=== PATIENT | male | born 1940 | race Caucasian/White ===

== ENCOUNTER → 2018-08-30 | Outpatient (CLI) | payer MEDICARE, OTHER | END | disposition home or self-care (01) | LOC: RAD 09:26 | DX: R05 Cough (principal) | CPT/HCPCS: 71046 ==

== ENCOUNTER → 2019-01-23 | Outpatient (CLI) | payer MEDICARE, OTHER ==
[2019-01-23] MEDS: IODIXANOL LOCM 100 ML BTL (10:25)
[2019-01-23] MEDS: SOD CHLORIDE 0.9% 100 ML (10:25)
== END | disposition home or self-care (01) ==
LOC: C/S 08:41
DX: R94.39 Abnormal result of other cardiovascular function study (principal)
CPT/HCPCS: 75571; 75574

== ENCOUNTER → 2019-01-25 | Outpatient (CLI) | payer MEDICARE, OTHER ==
[2019-01-25] MEDS: IOHEXOL 350MG/ML 50 ML BTL (12:14)
[2019-01-25] MEDS: IOHEXOL 100 ML (12:14)
[2019-01-25] MEDS: SOD CHLORIDE 0.9% 100 ML (12:14)
== END | disposition home or self-care (01) ==
LOC: C/S 10:58
DX: I73.9 Peripheral vascular disease, unspecified (principal)
CPT/HCPCS: 75635

== ENCOUNTER 2019-02-03 07:08 | Inpatient (IN) | payer MEDICARE, OTHER ==
[2019-02-03 07:48] LABS: ADD MAN DIFF? NO
[2019-02-03 07:56] LABS: WHITE BLOOD COUNT 7.6 10^3/ul (4.8-10.8)
[2019-02-03 07:56] LABS: BASOPHIL # 0.1 10^3/ul (0.0-0.1); BASOPHILS % 1.3 % (0.0-2.0); EOSINOPHILS # 0.6 10^3/ul (0.0-0.5); EOSINOPHILS % 7.5 % (0.0-7.0); HEMATOCRIT 44.3 % (42.0-52.0); HEMOGLOBIN 14.7 g/dl (14.0-18.0); LYMPHOCYTES # 2.1 10^3/ul (0.8-2.9); LYMPHOCYTES % 27.7 % (15.0-51.0); MEAN CORPUSCULAR HEMOGLOBIN 31.5 pg (29.0-33.0); MEAN CORPUSCULAR HGB CONC 33.2 g/dl (32.0-37.0); MEAN CORPUSCULAR VOLUME 95.1 fl (82.0-101.0); MEAN PLATELET VOLUME 9.6 fl (7.4-10.4); MONOCYTE # 0.7 10^3/ul (0.3-0.9); MONOCYTES % 9.2 % (0.0-11.0); NEUTROPHIL # 4.1 10^3/ul (1.6-7.5); NEUTROPHILS % 53.6 % (39.0-77.0); PLATELET COUNT 216 10^3/UL (140-415); RED BLOOD COUNT 4.66 10^6/ul (4.70-6.10); RED CELL DISTRIBUTION WIDTH 11.7 % (11.5-14.5)
[2019-02-03] MEDS: DIAZEPAM 5 MG TAB PO (08:08)
[2019-02-03] MEDS: DIPHENHYDRAMINE 50 MG CAP PO (08:08)
[2019-02-03] MEDS: FAMOTIDINE 20 MG TAB PO (08:09)
[2019-02-03 08:16] LABS: INR 1.34; PROTIME 16.7 Sec (11.9-14.9); PT RATIO 1.3
[2019-02-03 08:27] LABS: CHOLESTEROL 153 mg/dl (100-200)
[2019-02-03 08:27] LABS: CHOL/HDL RATIO 3.6 RATIO; HDL CHOLESTEROL 42 mg/dl (31-75); LDL CHOLESTEROL,CALCULATED 87 mg/dl; TRIGLYCERIDES 119 mg/dl (0-149)
[2019-02-03 08:46] LABS: PARTIAL THROMBOPLASTIN TIME 39.1 Sec (23.0-35.0)
[2019-02-03] MEDS ORDERED: SOD CHLORIDE 0.45% 1,000 ML IV (09:00)
[2019-02-03] MEDS ORDERED: MIDAZOLAM 1 MG/ML 2 ML INJ (09:19)
[2019-02-03] MEDS ORDERED: IODIXANOL LOCM 100 ML BTL (09:19)
[2019-02-03] MEDS ORDERED: NITROGLYCERIN (IC) 100 MCG/ML INJ (09:19)
[2019-02-03] MEDS ORDERED: HEPARIN 1000 UNITS/ML 10 ML INJ (09:19)
[2019-02-03] MEDS ORDERED: VERAPAMIL 5 MG INJ (09:19)
[2019-02-03] MEDS ORDERED: LIDOCAINE 1% (MDV) 20 ML INJ (09:19)
[2019-02-03] MEDS ORDERED: FENTAnyl 50 MCG/ML VIAL (09:19)
[2019-02-03 10:02] LABS: ANION GAP 9 (5-13); CALCIUM 9.4 mg/dl (8.4-10.2); CARBON DIOXIDE 29 mmol/L (21-31); CHLORIDE 101 mmol/L (97-110); GLUCOSE 111 mg/dl (70-220); POTASSIUM 3.8 mmol/L (3.5-5.1); SODIUM 139 mmol/L (135-144)
[2019-02-03 10:18] LABS: BLOOD UREA NITROGEN 24 mg/dl (7-20)
[2019-02-03 10:19] LABS: CREATININE 1.35 mg/dl (0.61-1.24)
[2019-02-03] MEDS ORDERED: SOD CHLORIDE 0.9% 500 ML (10:35)
[2019-02-03] MEDS ORDERED: AL HYDROX/MG HYDROX/SIMETH 30 ML CUP PO (11:00)
[2019-02-03] MEDS ORDERED: ONDANSETRON 4 MG INJ IV (11:00)
[2019-02-03] MEDS: SOD CHLORIDE 0.9% 1,000 ML IV (12:08)
[2019-02-03] MEDS: DONEPEZIL 5 MG TAB PO (20:14)
[2019-02-03] MEDS: traZODone 50 MG TAB PO (20:14)
[2019-02-03] MEDS: ATORVASTATIN 40 MG TAB PO (20:14)
[2019-02-03] MEDS: TAMSULOSIN (SR) 0.4 MG CAP PO (20:14)
[2019-02-04] MEDS: PANTOPRAZOLE (EC) 40 MG TAB PO (05:05)
[2019-02-04 05:55] LABS: ADD MAN DIFF? NO
[2019-02-04 06:03] LABS: WHITE BLOOD COUNT 9.1 10^3/ul (4.8-10.8)
[2019-02-04 06:03] LABS: BASOPHIL # 0.1 10^3/ul (0.0-0.1); BASOPHILS % 0.7 % (0.0-2.0); EOSINOPHILS # 0.5 10^3/ul (0.0-0.5); EOSINOPHILS % 5.2 % (0.0-7.0); HEMATOCRIT 41.3 % (42.0-52.0); HEMOGLOBIN 14.2 g/dl (14.0-18.0); LYMPHOCYTES # 1.8 10^3/ul (0.8-2.9); MEAN CORPUSCULAR HEMOGLOBIN 31.9 pg (29.0-33.0); MEAN CORPUSCULAR HGB CONC 34.4 g/dl (32.0-37.0); MEAN CORPUSCULAR VOLUME 92.8 fl (82.0-101.0); MEAN PLATELET VOLUME 10.2 fl (7.4-10.4); MONOCYTE # 0.9 10^3/ul (0.3-0.9); MONOCYTES % 9.7 % (0.0-11.0); NEUTROPHIL # 5.8 10^3/ul (1.6-7.5); NEUTROPHILS % 63.9 % (39.0-77.0); PLATELET COUNT 190 10^3/UL (140-415); RED BLOOD COUNT 4.45 10^6/ul (4.70-6.10); RED CELL DISTRIBUTION WIDTH 11.7 % (11.5-14.5)
[2019-02-04 06:45] LABS: ANION GAP 8 (5-13); BLOOD UREA NITROGEN 30 mg/dl (7-20); CALCIUM 9.2 mg/dl (8.4-10.2); CARBON DIOXIDE 30 mmol/L (21-31); CHLORIDE 103 mmol/L (97-110); CREATININE 1.53 mg/dl (0.61-1.24); GLUCOSE 101 mg/dl (70-220); POTASSIUM 3.7 mmol/L (3.5-5.1); SODIUM 141 mmol/L (135-144)
[2019-02-04] MEDS: DIAZEPAM 5 MG TAB PO (08:52)
[2019-02-04] MEDS: AMLODIPINE 5 MG TAB PO (08:53)
[2019-02-04] MEDS: DIPHENHYDRAMINE 50 MG CAP PO (08:53)
[2019-02-04] MEDS: BENAZEPRIL 10 MG TAB PO (08:54)
[2019-02-04] MEDS: ATORVASTATIN 40 MG TAB PO (20:22)
[2019-02-04] MEDS: DONEPEZIL 5 MG TAB PO (20:22)
[2019-02-04] MEDS: TAMSULOSIN (SR) 0.4 MG CAP PO (20:22)
[2019-02-04] MEDS: traZODone 50 MG TAB PO (20:22)
[2019-02-05] MEDS: PANTOPRAZOLE (EC) 40 MG TAB PO (06:19)
[2019-02-05 06:35] LABS: ADD MAN DIFF? NO
[2019-02-05 06:47] LABS: WHITE BLOOD COUNT 8.8 10^3/ul (4.8-10.8)
[2019-02-05 06:47] LABS: BASOPHIL # 0.1 10^3/ul (0.0-0.1); BASOPHILS % 0.9 % (0.0-2.0); EOSINOPHILS # 0.5 10^3/ul (0.0-0.5); EOSINOPHILS % 5.6 % (0.0-7.0); HEMATOCRIT 42.1 % (42.0-52.0); HEMOGLOBIN 14.5 g/dl (14.0-18.0); LYMPHOCYTES % 22.3 % (15.0-51.0); MEAN CORPUSCULAR HGB CONC 34.4 g/dl (32.0-37.0); MEAN CORPUSCULAR VOLUME 92.9 fl (82.0-101.0); MEAN PLATELET VOLUME 10.6 fl (7.4-10.4); MONOCYTE # 0.8 10^3/ul (0.3-0.9); MONOCYTES % 9.1 % (0.0-11.0); NEUTROPHIL # 5.4 10^3/ul (1.6-7.5); NEUTROPHILS % 61.4 % (39.0-77.0); PLATELET COUNT 182 10^3/UL (140-415); RED BLOOD COUNT 4.53 10^6/ul (4.70-6.10); RED CELL DISTRIBUTION WIDTH 11.9 % (11.5-14.5)
[2019-02-05 07:05] LABS: ANION GAP 12 (5-13); BLOOD UREA NITROGEN 33 mg/dl (7-20); CARBON DIOXIDE 25 mmol/L (21-31); CHLORIDE 104 mmol/L (97-110); CREATININE 1.52 mg/dl (0.61-1.24); GLUCOSE 102 mg/dl (70-220); POTASSIUM 3.6 mmol/L (3.5-5.1); SODIUM 141 mmol/L (135-144)
[2019-02-05] MEDS: DIPHENHYDRAMINE 50 MG CAP PO (09:08)
[2019-02-05] MEDS: DIAZEPAM 5 MG TAB PO (09:09)
[2019-02-05] MEDS: AMLODIPINE 5 MG TAB PO (09:09)
[2019-02-05] MEDS: BENAZEPRIL 10 MG TAB PO (09:09)
[2019-02-05] MEDS: DONEPEZIL 5 MG TAB PO (21:21)
[2019-02-05] MEDS: ATORVASTATIN 40 MG TAB PO (21:21)
[2019-02-05] MEDS: TAMSULOSIN (SR) 0.4 MG CAP PO (21:21)
[2019-02-05] MEDS: traZODone 50 MG TAB PO (21:21)
[2019-02-06 05:18] LABS: ADD MAN DIFF? NO
[2019-02-06 05:26] LABS: BASOPHIL # 0.1 10^3/ul (0.0-0.1); BASOPHILS % 0.9 % (0.0-2.0); EOSINOPHILS # 0.5 10^3/ul (0.0-0.5); HEMATOCRIT 42.7 % (42.0-52.0); HEMOGLOBIN 14.5 g/dl (14.0-18.0); MEAN CORPUSCULAR HEMOGLOBIN 32.2 pg (29.0-33.0); MEAN CORPUSCULAR VOLUME 94.7 fl (82.0-101.0); MONOCYTE # 0.9 10^3/ul (0.3-0.9); MONOCYTES % 9.8 % (0.0-11.0); NEUTROPHIL # 5.5 10^3/ul (1.6-7.5); NEUTROPHILS % 60.5 % (39.0-77.0); PLATELET COUNT 182 10^3/UL (140-415); RED BLOOD COUNT 4.51 10^6/ul (4.70-6.10); RED CELL DISTRIBUTION WIDTH 11.7 % (11.5-14.5)
[2019-02-06 05:26] LABS: WHITE BLOOD COUNT 9.1 10^3/ul (4.8-10.8)
[2019-02-06 06:02] LABS: ANION GAP 14 (5-13); BLOOD UREA NITROGEN 35 mg/dl (7-20); CALCIUM 8.8 mg/dl (8.4-10.2); CARBON DIOXIDE 28 mmol/L (21-31); CHLORIDE 101 mmol/L (97-110); CREATININE 1.55 mg/dl (0.61-1.24); GLUCOSE 107 mg/dl (70-220); POTASSIUM 3.7 mmol/L (3.5-5.1); SODIUM 143 mmol/L (135-144)
[2019-02-06] MEDS: PANTOPRAZOLE (EC) 40 MG TAB PO (06:36)
[2019-02-06] MEDS: DIPHENHYDRAMINE 50 MG CAP PO (09:51)
[2019-02-06] MEDS: DIAZEPAM 5 MG TAB PO (09:52)
[2019-02-06] MEDS: BENAZEPRIL 10 MG TAB PO (09:52)
[2019-02-06] MEDS: AMLODIPINE 5 MG TAB PO (09:52)
[2019-02-06] MEDS: traZODone 50 MG TAB PO (20:22)
[2019-02-06] MEDS: ATORVASTATIN 40 MG TAB PO (20:22)
[2019-02-06] MEDS: TAMSULOSIN (SR) 0.4 MG CAP PO (20:22)
[2019-02-06] MEDS: DONEPEZIL 5 MG TAB PO (20:23)
[2019-02-07] MEDS: PANTOPRAZOLE (EC) 40 MG TAB PO (05:34)
[2019-02-07 05:45] LABS: ADD MAN DIFF? NO
[2019-02-07 05:49] LABS: BASOPHIL # 0.1 10^3/ul (0.0-0.1); BASOPHILS % 0.7 % (0.0-2.0); EOSINOPHILS # 0.5 10^3/ul (0.0-0.5); EOSINOPHILS % 6.5 % (0.0-7.0); HEMATOCRIT 38.9 % (42.0-52.0); HEMOGLOBIN 13.3 g/dl (14.0-18.0); LYMPHOCYTES # 1.8 10^3/ul (0.8-2.9); LYMPHOCYTES % 21.9 % (15.0-51.0); MEAN CORPUSCULAR HGB CONC 34.2 g/dl (32.0-37.0); MEAN CORPUSCULAR VOLUME 93.5 fl (82.0-101.0); MEAN PLATELET VOLUME 10.1 fl (7.4-10.4); MONOCYTE # 0.9 10^3/ul (0.3-0.9); MONOCYTES % 10.9 % (0.0-11.0); NEUTROPHIL # 4.8 10^3/ul (1.6-7.5); NEUTROPHILS % 59.5 % (39.0-77.0); PLATELET COUNT 171 10^3/UL (140-415); RED BLOOD COUNT 4.16 10^6/ul (4.70-6.10); RED CELL DISTRIBUTION WIDTH 11.7 % (11.5-14.5)
[2019-02-07 05:49] LABS: WHITE BLOOD COUNT 8.1 10^3/ul (4.8-10.8)
[2019-02-07 06:07] LABS: ANION GAP 8 (5-13); BLOOD UREA NITROGEN 33 mg/dl (7-20); CARBON DIOXIDE 26 mmol/L (21-31); CHLORIDE 105 mmol/L (97-110); CREATININE 1.37 mg/dl (0.61-1.24); GLUCOSE 99 mg/dl (70-220); INR 0.97; POTASSIUM 3.7 mmol/L (3.5-5.1); SODIUM 139 mmol/L (135-144)
[2019-02-07] MEDS ORDERED: EPINEPHrine 4 MG in DEXTROSE 5% 246 ML IV ×2 (07:00→14:30)
[2019-02-07] MEDS ORDERED: ISOFLURANE 15 MIN (07:00)
[2019-02-07] MEDS ORDERED: DOPamine-D5W 1.6 MG/ML 250 ML (07:00)
[2019-02-07] MEDS ORDERED: MILRINONE LACTATE 20 MG/D5W 100 ML BAG (07:00)
[2019-02-07] MEDS ORDERED: INSULIN HUMAN REGULAR 100 UNIT in SOD CHLORIDE 0.9% 99 ML IV (07:00)
[2019-02-07] MEDS ORDERED: NITROGLYCERIN 50 MG/D5W 250 ML BTL (07:00)
[2019-02-07] MEDS ORDERED: PHENYLephrine 20MG IN 250 ML 250 ML IV (07:00)
[2019-02-07] MEDS ORDERED: MIDAZOLAM 5 ML ×2 (07:39→10:01)
[2019-02-07] MEDS ORDERED: PHENYLephrine (100 MCG/ML) 5ML SYG ×4 (07:42→12:22)
[2019-02-07] MEDS ORDERED: POTASSIUM CHLORIDE 40 MEQ INJ (07:45)
[2019-02-07] MEDS ORDERED: HEPARIN 1000 UNITS/ML 10 ML INJ ×3 (07:45→09:53)
[2019-02-07] MEDS ORDERED: ALBUMIN HUMAN 25% 100 ML (07:46)
[2019-02-07] MEDS ORDERED: MAGNESIUM SULFATE (MG) 50% 10 ML INJ (07:46)
[2019-02-07] MEDS ORDERED: LIDOCAINE 100 MG SYRINGE (07:46)
[2019-02-07] MEDS ORDERED: PHENYLephrine 10 MG INJ (07:46)
[2019-02-07] MEDS ORDERED: CA CHLORIDE 10% 10 ML SYRINGE (07:46)
[2019-02-07] MEDS ORDERED: NA BICARBONATE 8.4% 50 ML SYG (07:46)
[2019-02-07] MEDS ORDERED: MANNITOL 20% 500 ML (07:47)
[2019-02-07] MEDS ORDERED: AMINOCAPROIC ACID 5 GM INJ (07:47)
[2019-02-07] MEDS ORDERED: CEFAZOLIN 1 GM INJ ×2 (08:34→11:59)
[2019-02-07] MEDS ORDERED: ADENOSINE 2 ML (08:34)
[2019-02-07] MEDS: DIAZEPAM 5 MG TAB PO (09:00)
[2019-02-07] MEDS: BENAZEPRIL 10 MG TAB PO (09:00)
[2019-02-07] MEDS: DIPHENHYDRAMINE 50 MG CAP PO (09:00)
[2019-02-07] MEDS: AMLODIPINE 5 MG TAB PO (09:00)
[2019-02-07] MEDS: HEPARIN 1000 UNITS/ML 10 ML INJ (09:05)
[2019-02-07] MEDS: PAPAVERINE 60 MG INJ (09:05)
[2019-02-07] MEDS: VANCOMYCIN 1 GM INJ (09:06)
[2019-02-07] MEDS ORDERED: FUROSEMIDE 20 MG INJ (10:16)
[2019-02-07] MEDS ORDERED: ETOMIDATE 20 MG INJ (11:59)
[2019-02-07] MEDS ORDERED: LIDOCAINE 2% (SDV) 5 ML INJ (11:59)
[2019-02-07] MEDS ORDERED: ROCURONIUM 50 MG INJ (11:59)
[2019-02-07] MEDS ORDERED: PROTAMINE 250 MG INJ (12:00)
[2019-02-07 12:11] LABS: IMMEDIATE SPIN CROSSMATCH 1 7
[2019-02-07 12:30] LABS: IMMEDIATE SPIN CROSSMATCH 1; TYPE AND SCREEN 1
[2019-02-07] MEDS ORDERED: GELATIN SIZE 100 SPONGE (12:36)
[2019-02-07] MEDS ORDERED: THROMBIN 5000 UNIT VIAL (12:36)
[2019-02-07] MEDS ORDERED: DIPHENHYDRAMINE 50 MG INJ (12:46)
[2019-02-07] MEDS: PHENYLephrine 20MG IN 250 ML 250 ML IV ×2 (14:00→16:24)
[2019-02-07] MEDS: NITROGLYCERIN 50 MG/D5W (PMX) 250 ML IV (14:00)
[2019-02-07] MEDS: MILRINONE LACTATE 100 ML IV (14:00)
[2019-02-07] MEDS: DOPamine-D5W 1.6 MG/ML 250 ML IV (14:00)
[2019-02-07] MEDS ORDERED: ALBUMIN HUMAN 5% 250 ML (14:21)
[2019-02-07] MEDS ORDERED: ALBUMIN HUMAN 5% 500 ML (14:22)
[2019-02-07] MEDS ORDERED: ALBUMIN HUMAN 5% 250 ML IV (14:30)
[2019-02-07] MEDS ORDERED: DIPHENHYDRAMINE 50 MG INJ IV (14:30)
[2019-02-07] MEDS ORDERED: ATROPINE 1 MG/10 ML SYRINGE IV (14:30)
[2019-02-07] MEDS ORDERED: morphine (1 MG/ML) 10ML SYRINGE IV ×2 (14:30)
[2019-02-07] MEDS ORDERED: ONDANSETRON 4 MG INJ IV (14:30)
[2019-02-07] MEDS ORDERED: EPHEDrine SULFATE 50 MG/5 ML SYG IV (14:30)
[2019-02-07] MEDS ORDERED: VASOPRESSIN 100 UNIT in SOD CHLORIDE 0.9% 95 ML IV (14:30)
[2019-02-07] MEDS ORDERED: LORAZEPAM 2 MG INJ IV (14:30)
[2019-02-07] MEDS: LACTATED RINGER'S 1,000 ML IV (14:34)
[2019-02-07] MEDS: ALBUMIN HUMAN 5% 500 ML IV (14:35)
[2019-02-07 14:46] LABS: AADO2 Arterial 338.9 mmHg (7.0-24.0); Arterial Base Excess -2.8 mmol/L (-3.0-3); Arterial Blood Gas Oxygen Sat 96.2 mmHG (95.0-100.0); Arterial COHb 0.3 % (0.0-3.0); Arterial Fraction of Oxyhgb 95.3 % (93.0-99.0); Arterial HCO3 24.5 mmol/L (22.0-26.0); Arterial MetHb 0.6 % (0.0-1.5); MODE VENT - AC; Site A-Line
[2019-02-07 14:50] LABS: MODE VENT - AC; MetHgb Mixed Venous 0.8 %; Mixed Venous COHb 0.3 %; Mixed Venous Fraction OxyHgb 85.7 %; Mixed Venous Oxygen Sat 86.7 mmHG (65.0-75.0); Mixed Venous Total Hemglobin 11.1 g/dl; Sample Type BLMV; Site OTHER
[2019-02-07] MEDS ORDERED: HYDROmorphONE 0.5 MG/0.5 ML SYG IV (15:00)
[2019-02-07] MEDS ORDERED: ACETAMINOPHEN 650 MG SUPP PR (15:00)
[2019-02-07 15:14] LABS: ADD MAN DIFF? NO
[2019-02-07 15:16] LABS: WHITE BLOOD COUNT 7.5 10^3/ul (4.8-10.8)
[2019-02-07 15:17] LABS: BASOPHILS % 0.1 % (0.0-2.0); EOSINOPHILS % 0.3 % (0.0-7.0); HEMATOCRIT 31.3 % (42.0-52.0); HEMOGLOBIN 10.6 g/dl (14.0-18.0); LYMPHOCYTES # 1.1 10^3/ul (0.8-2.9); MEAN CORPUSCULAR HEMOGLOBIN 32.1 pg (29.0-33.0); MEAN CORPUSCULAR HGB CONC 33.9 g/dl (32.0-37.0); MEAN CORPUSCULAR VOLUME 94.8 fl (82.0-101.0); MEAN PLATELET VOLUME 9.2 fl (7.4-10.4); MONOCYTE # 0.4 10^3/ul (0.3-0.9); MONOCYTES % 4.7 % (0.0-11.0); NEUTROPHILS % 80.1 % (39.0-77.0); PLATELET COUNT 138 10^3/UL (140-415); RED CELL DISTRIBUTION WIDTH 12.1 % (11.5-14.5)
[2019-02-07 15:35] LABS: ANION GAP 10 (5-13); BLOOD UREA NITROGEN 27 mg/dl (7-20); CALCIUM 8.6 mg/dl (8.4-10.2); CARBON DIOXIDE 24 mmol/L (21-31); CHLORIDE 106 mmol/L (97-110); CREATININE 1.31 mg/dl (0.61-1.24); GLUCOSE 122 mg/dl (70-220); MAGNESIUM 2.3 mg/dl (1.7-2.5); POTASSIUM 3.9 mmol/L (3.5-5.1); SODIUM 140 mmol/L (135-144)
[2019-02-07 15:37] LABS: INR 1.39; PROTIME 17.2 Sec (11.9-14.9); PT RATIO 1.3
[2019-02-07 15:38] LABS: PARTIAL THROMBOPLASTIN TIME 31.5 Sec (23.0-35.0)
[2019-02-07] MEDS: CEFAZOLIN 1 GM/50 ML (PMX) 50 ML IVPB ×2 (16:17→23:00)
[2019-02-07] MEDS: POTASSIUM CHLORIDE 40 MEQ, CALCIUM CHLORIDE 10% 1 GM in DEXTROSE 5%-0.225% NACL 1,000 ML IV (16:17)
[2019-02-07] MEDS: HYDROmorphONE 0.5 MG/0.5 ML SYG IV ×3 (16:33→17:58)
[2019-02-07] MEDS: POTASSIUM CHLORIDE 50 ML IVPB ×4 (17:18→21:50)
[2019-02-07] MEDS: MAGNESIUM SULFATE 2 GM/50 ML 50 ML IVPB (17:58)
[2019-02-07 18:39] LABS: INR 1.21; PROTIME 15.4 Sec (11.9-14.9); PT RATIO 1.2
[2019-02-07 18:40] LABS: PARTIAL THROMBOPLASTIN TIME 35.8 Sec (23.0-35.0)
[2019-02-07 18:42] LABS: ANION GAP 10 (5-13); BLOOD UREA NITROGEN 27 mg/dl (7-20); CALCIUM 8.9 mg/dl (8.4-10.2); CARBON DIOXIDE 23 mmol/L (21-31); CHLORIDE 107 mmol/L (97-110); CREATININE 1.44 mg/dl (0.61-1.24); GLUCOSE 160 mg/dl (70-220); MAGNESIUM 2.1 mg/dl (1.7-2.5); POTASSIUM 3.5 mmol/L (3.5-5.1); SODIUM 140 mmol/L (135-144)
[2019-02-07] MEDS: FAMOTIDINE 20 MG INJ IV (20:36)
[2019-02-07 20:59] LABS: ABNORMAL IP MESSAGE 1; ADD MAN DIFF? NO; BASOPHILS % 0.3 % (0.0-2.0); EOSINOPHILS # 0.1 10^3/ul (0.0-0.5); EOSINOPHILS % 0.6 % (0.0-7.0); HEMATOCRIT 31.9 % (42.0-52.0); HEMOGLOBIN 10.9 g/dl (14.0-18.0); LYMPHOCYTES # 0.4 10^3/ul (0.8-2.9); LYMPHOCYTES % 3.1 % (15.0-51.0); MEAN CORPUSCULAR HEMOGLOBIN 31.6 pg (29.0-33.0); MEAN CORPUSCULAR HGB CONC 34.2 g/dl (32.0-37.0); MEAN CORPUSCULAR VOLUME 92.5 fl (82.0-101.0); MEAN PLATELET VOLUME 9.3 fl (7.4-10.4); MONOCYTE # 0.8 10^3/ul (0.3-0.9); MONOCYTES % 6.4 % (0.0-11.0); NEUTROPHIL # 11.6 10^3/ul (1.6-7.5); NEUTROPHILS % 88.8 % (39.0-77.0); PLATELET COUNT 148 10^3/UL (140-415); POSITIVE DIFF @See below; RED BLOOD COUNT 3.45 10^6/ul (4.70-6.10); RED CELL DISTRIBUTION WIDTH 12.3 % (11.5-14.5)
[2019-02-07] MEDS: DONEPEZIL 5 MG TAB PO (21:00)
[2019-02-07] MEDS: ATORVASTATIN 40 MG TAB PO (21:00)
[2019-02-07] MEDS: traZODone 50 MG TAB PO (21:00)
[2019-02-07] MEDS: TAMSULOSIN (SR) 0.4 MG CAP PO (21:00)
[2019-02-07] MEDS ORDERED: DEXTROSE 50% 50 ML SYRINGE IV ×2 (22:00)
[2019-02-07] MEDS: ACCU-CHEK XX ×2 (22:20→23:02)
[2019-02-07] MEDS: INSULIN HUMAN REGULAR 100 UNIT in SOD CHLORIDE 0.9% 99 ML IV (22:25)
[2019-02-07] MEDS: morphine 2 MG INJ IV (23:11)
[2019-02-08] MEDS: ACCU-CHEK XX ×10 (00:01→09:00)
[2019-02-08 00:06] LABS: ANION GAP 13 (5-13); BLOOD UREA NITROGEN 27 mg/dl (7-20); CARBON DIOXIDE 22 mmol/L (21-31); CHLORIDE 106 mmol/L (97-110); CREATININE 1.54 mg/dl (0.61-1.24); GLUCOSE 176 mg/dl (70-220); POTASSIUM 4.7 mmol/L (3.5-5.1); SODIUM 141 mmol/L (135-144)
[2019-02-08 00:32] LABS: MAGNESIUM 2.3 mg/dl (1.7-2.5)
[2019-02-08] MEDS: MAGNESIUM SULFATE 2 GM/50 ML 50 ML IVPB (00:39)
[2019-02-08 01:13] LABS: AADO2 Arterial 167.5 mmHg (7.0-24.0); Arterial Blood Gas Oxygen Sat 93.3 mmHG (95.0-100.0); Arterial COHb 0.3 % (0.0-3.0); Arterial Fraction of Oxyhgb 92.6 % (93.0-99.0); Arterial HCO3 21.3 mmol/L (22.0-26.0); Arterial MetHb 0.5 % (0.0-1.5); Arterial pCO2 39.3 mmhg (35-45); Blood Gas PS 10; MODE VENT - CPAP; Site A-Line
[2019-02-08 02:46] LABS: AADO2 Arterial 152.5 mmHg (7.0-24.0); Arterial Base Excess -4.1 mmol/L (-3.0-3); Arterial Blood Gas Oxygen Sat 94.6 mmHG (95.0-100.0); Arterial COHb 0.3 % (0.0-3.0); Arterial Fraction of Oxyhgb 93.8 % (93.0-99.0); Arterial MetHb 0.5 % (0.0-1.5); Arterial pCO2 40.4 mmhg (35-45); Blood Gas PS 10; MODE VENT - CPAP; Site A-Line; Temperature 38.2 C
[2019-02-08] MEDS: LEVALBUTEROL (NEB) 0.63 MG/3 ML AMP HHN ×4 (03:52→20:15)
[2019-02-08 05:14] LABS: ADD MAN DIFF? NO
[2019-02-08 05:18] LABS: ABNORMAL IP MESSAGE 1; BASOPHIL # 0.1 10^3/ul (0.0-0.1); BASOPHILS % 0.4 % (0.0-2.0); EOSINOPHILS % 0.1 % (0.0-7.0); HEMATOCRIT 33.5 % (42.0-52.0); HEMOGLOBIN 11.5 g/dl (14.0-18.0); LYMPHOCYTES # 0.5 10^3/ul (0.8-2.9); LYMPHOCYTES % 3.8 % (15.0-51.0); MEAN CORPUSCULAR HEMOGLOBIN 32.2 pg (29.0-33.0); MEAN CORPUSCULAR HGB CONC 34.3 g/dl (32.0-37.0); MEAN CORPUSCULAR VOLUME 93.8 fl (82.0-101.0); MEAN PLATELET VOLUME 10.4 fl (7.4-10.4); MONOCYTES % 7.1 % (0.0-11.0); NEUTROPHILS % 87.9 % (39.0-77.0); PLATELET COUNT 154 10^3/UL (140-415); POSITIVE DIFF @See below; RED BLOOD COUNT 3.57 10^6/ul (4.70-6.10); RED CELL DISTRIBUTION WIDTH 12.6 % (11.5-14.5)
[2019-02-08 05:18] LABS: WHITE BLOOD COUNT 13.6 10^3/ul (4.8-10.8)
[2019-02-08] MEDS: PANTOPRAZOLE (EC) 40 MG TAB PO (05:22)
[2019-02-08 05:40] LABS: INR 1.14; PROTIME 14.7 Sec (11.9-14.9); PT RATIO 1.1
[2019-02-08 05:41] LABS: PARTIAL THROMBOPLASTIN TIME 39.2 Sec (23.0-35.0)
[2019-02-08 05:49] LABS: ANION GAP 10 (5-13); BLOOD UREA NITROGEN 28 mg/dl (7-20); CALCIUM 9.3 mg/dl (8.4-10.2); CARBON DIOXIDE 23 mmol/L (21-31); CHLORIDE 110 mmol/L (97-110); CREATININE 1.71 mg/dl (0.61-1.24); GLUCOSE 140 mg/dl (70-220); MAGNESIUM 2.2 mg/dl (1.7-2.5); POTASSIUM 4.8 mmol/L (3.5-5.1); SODIUM 143 mmol/L (135-144)
[2019-02-08] MEDS: CEFAZOLIN 1 GM/50 ML (PMX) 50 ML IVPB (06:54)
[2019-02-08 08:45] LABS: AADO2 Arterial 166.7 mmHg (7.0-24.0); Arterial Base Excess -1.5 mmol/L (-3.0-3); Arterial Blood Gas Oxygen Sat 93.4 mmHG (95.0-100.0); Arterial COHb 0.3 % (0.0-3.0); Arterial Fraction of Oxyhgb 92.7 % (93.0-99.0); Arterial HCO3 22.8 mmol/L (22.0-26.0); Arterial MetHb 0.5 % (0.0-1.5); MODE NASAL CANNULA; Site A-Line
[2019-02-08] MEDS: FAMOTIDINE 20 MG INJ IV (09:02)
[2019-02-08] MEDS: ONDANSETRON 4 MG INJ IV (09:02)
[2019-02-08] MEDS: AMLODIPINE 5 MG TAB PO (09:16)
[2019-02-08] MEDS: ACETAMINOPHEN 325 MG TAB PO (10:15)
[2019-02-08 11:09] LABS: HEMOGLOBIN A1C 5.7 % (0-5.9)
[2019-02-08] MEDS: FUROSEMIDE 20 MG INJ IV (15:01)
[2019-02-08 15:06] LABS: ADD MAN DIFF? NO
[2019-02-08 15:10] LABS: WHITE BLOOD COUNT 13.2 10^3/ul (4.8-10.8)
[2019-02-08 15:10] LABS: BASOPHIL # 0.1 10^3/ul (0.0-0.1); BASOPHILS % 0.5 % (0.0-2.0); EOSINOPHILS % 0.2 % (0.0-7.0); HEMATOCRIT 34.1 % (42.0-52.0); HEMOGLOBIN 11.7 g/dl (14.0-18.0); LYMPHOCYTES # 1.3 10^3/ul (0.8-2.9); LYMPHOCYTES % 9.6 % (15.0-51.0); MEAN CORPUSCULAR HEMOGLOBIN 31.9 pg (29.0-33.0); MEAN CORPUSCULAR HGB CONC 34.3 g/dl (32.0-37.0); MEAN CORPUSCULAR VOLUME 92.9 fl (82.0-101.0); MEAN PLATELET VOLUME 10.1 fl (7.4-10.4); MONOCYTE # 1.1 10^3/ul (0.3-0.9); MONOCYTES % 8.1 % (0.0-11.0); NEUTROPHIL # 10.6 10^3/ul (1.6-7.5); NEUTROPHILS % 80.8 % (39.0-77.0); PLATELET COUNT 130 10^3/UL (140-415); RED BLOOD COUNT 3.67 10^6/ul (4.70-6.10); RED CELL DISTRIBUTION WIDTH 12.5 % (11.5-14.5)
[2019-02-08 15:30] LABS: ANION GAP 8 (5-13); BLOOD UREA NITROGEN 26 mg/dl (7-20); CALCIUM 9.4 mg/dl (8.4-10.2); CARBON DIOXIDE 22 mmol/L (21-31); CHLORIDE 109 mmol/L (97-110); CREATININE 1.61 mg/dl (0.61-1.24); GLUCOSE 134 mg/dl (70-220); MAGNESIUM 1.8 mg/dl (1.7-2.5); POTASSIUM 4.6 mmol/L (3.5-5.1); SODIUM 139 mmol/L (135-144)
[2019-02-08 15:31] LABS: INR 1.23; PARTIAL THROMBOPLASTIN TIME 42.3 Sec (23.0-35.0); PROTIME 15.6 Sec (11.9-14.9); PT RATIO 1.2
[2019-02-08] MEDS: POTASSIUM CHLORIDE 40 MEQ, CALCIUM CHLORIDE 10% 1 GM in DEXTROSE 5%-0.225% NACL 1,000 ML IV (17:14)
[2019-02-08] MEDS: traZODone 50 MG TAB PO (20:35)
[2019-02-08] MEDS: TAMSULOSIN (SR) 0.4 MG CAP PO (20:35)
[2019-02-08] MEDS: ATORVASTATIN 40 MG TAB PO (20:36)
[2019-02-08] MEDS: DONEPEZIL 5 MG TAB PO (20:36)
[2019-02-09] MEDS: POTASSIUM CHLORIDE 40 MEQ, CALCIUM CHLORIDE 10% 1 GM in DEXTROSE 5%-0.225% NACL 1,000 ML IV ×2 (01:07→12:14)
[2019-02-09] MEDS: LEVALBUTEROL (NEB) 0.63 MG/3 ML AMP HHN ×4 (01:53→20:09)
[2019-02-09 04:47] LABS: ADD MAN DIFF? NO
[2019-02-09 04:47] LABS: WHITE BLOOD COUNT 14.2 10^3/ul (4.8-10.8)
[2019-02-09 04:48] LABS: BASOPHIL # 0.1 10^3/ul (0.0-0.1); BASOPHILS % 0.4 % (0.0-2.0); EOSINOPHILS # 0.1 10^3/ul (0.0-0.5); EOSINOPHILS % 0.6 % (0.0-7.0); HEMATOCRIT 32.8 % (42.0-52.0); HEMOGLOBIN 11.2 g/dl (14.0-18.0); LYMPHOCYTES # 1.3 10^3/ul (0.8-2.9); LYMPHOCYTES % 8.8 % (15.0-51.0); MEAN CORPUSCULAR HEMOGLOBIN 32.1 pg (29.0-33.0); MEAN CORPUSCULAR HGB CONC 34.1 g/dl (32.0-37.0); MEAN PLATELET VOLUME 10.9 fl (7.4-10.4); MONOCYTE # 1.1 10^3/ul (0.3-0.9); MONOCYTES % 7.7 % (0.0-11.0); NEUTROPHIL # 11.6 10^3/ul (1.6-7.5); NEUTROPHILS % 81.9 % (39.0-77.0); PLATELET COUNT 123 10^3/UL (140-415); RED BLOOD COUNT 3.49 10^6/ul (4.70-6.10); RED CELL DISTRIBUTION WIDTH 12.6 % (11.5-14.5)
[2019-02-09 05:07] LABS: INR 1.23; PROTIME 15.6 Sec (11.9-14.9); PT RATIO 1.2
[2019-02-09 05:08] LABS: PARTIAL THROMBOPLASTIN TIME 43.9 Sec (23.0-35.0)
[2019-02-09 05:09] LABS: ANION GAP 7 (5-13); BLOOD UREA NITROGEN 31 mg/dl (7-20); CALCIUM 9.8 mg/dl (8.4-10.2); CARBON DIOXIDE 25 mmol/L (21-31); CHLORIDE 107 mmol/L (97-110); CREATININE 1.63 mg/dl (0.61-1.24); GLUCOSE 150 mg/dl (70-220); MAGNESIUM 1.7 mg/dl (1.7-2.5); POTASSIUM 4.5 mmol/L (3.5-5.1); SODIUM 139 mmol/L (135-144)
[2019-02-09] MEDS: ACETAMINOPHEN 325 MG TAB PO (05:15)
[2019-02-09] MEDS: PANTOPRAZOLE (EC) 40 MG TAB PO (05:15)
[2019-02-09] MEDS: MAGNESIUM SULFATE 1 GM/D5W 100 ML IVPB ×2 (05:23→08:14)
[2019-02-09] MEDS: ASPIRIN 81 MG TAB PO (08:38)
[2019-02-09] MEDS: AMLODIPINE 5 MG TAB PO (08:38)
[2019-02-09] MEDS: morphine 2 MG INJ IV ×3 (12:07→23:09)
[2019-02-09] MEDS: FUROSEMIDE 40 MG INJ IM (16:48)
[2019-02-09] MEDS: TAMSULOSIN (SR) 0.4 MG CAP PO (21:13)
[2019-02-09] MEDS: DONEPEZIL 5 MG TAB PO (21:13)
[2019-02-09] MEDS: ATORVASTATIN 40 MG TAB PO (21:13)
[2019-02-09] MEDS: traZODone 50 MG TAB PO (21:14)
[2019-02-10] MEDS: LEVALBUTEROL (NEB) 0.63 MG/3 ML AMP HHN ×4 (01:37→20:10)
[2019-02-10] MEDS: PANTOPRAZOLE (EC) 40 MG TAB PO (05:59)
[2019-02-10] MEDS: AMLODIPINE 5 MG TAB PO (08:12)
[2019-02-10] MEDS: ASPIRIN 81 MG TAB PO (08:12)
[2019-02-10] MEDS: POTASSIUM CHLORIDE 40 MEQ, CALCIUM CHLORIDE 10% 1 GM in DEXTROSE 5%-0.225% NACL 1,000 ML IV ×2 (11:27→19:05)
[2019-02-10] MEDS: traZODone 50 MG TAB PO (21:06)
[2019-02-10] MEDS: ATORVASTATIN 40 MG TAB PO (21:06)
[2019-02-10] MEDS: DONEPEZIL 5 MG TAB PO (21:06)
[2019-02-10] MEDS: TAMSULOSIN (SR) 0.4 MG CAP PO (21:06)
[2019-02-11] MEDS: LEVALBUTEROL (NEB) 0.63 MG/3 ML AMP HHN ×4 (02:50→20:35)
[2019-02-11] MEDS: POTASSIUM CHLORIDE 40 MEQ, CALCIUM CHLORIDE 10% 1 GM in DEXTROSE 5%-0.225% NACL 1,000 ML IV ×2 (04:37→21:47)
[2019-02-11] MEDS: PANTOPRAZOLE (EC) 40 MG TAB PO (05:55)
[2019-02-11] MEDS: ASPIRIN 81 MG TAB PO (08:03)
[2019-02-11] MEDS: AMLODIPINE 5 MG TAB PO (08:04)
[2019-02-11] MEDS: morphine 2 MG INJ IV ×2 (09:47→21:47)
[2019-02-11] MEDS: DONEPEZIL 5 MG TAB PO (21:00)
[2019-02-11] MEDS: traZODone 50 MG TAB PO (21:46)
[2019-02-11] MEDS: ATORVASTATIN 40 MG TAB PO (21:46)
[2019-02-11] MEDS: TAMSULOSIN (SR) 0.4 MG CAP PO (21:47)
[2019-02-12] MEDS: LEVALBUTEROL (NEB) 0.63 MG/3 ML AMP HHN ×4 (01:02→20:03)
[2019-02-12] MEDS: LORAZEPAM 2 MG INJ IV (03:09)
[2019-02-12] MEDS: PANTOPRAZOLE (EC) 40 MG TAB PO (06:13)
[2019-02-12 07:55] LABS: ADD MAN DIFF? NO
[2019-02-12 07:59] LABS: WHITE BLOOD COUNT 9.7 10^3/ul (4.8-10.8)
[2019-02-12 07:59] LABS: BASOPHIL # 0.1 10^3/ul (0.0-0.1); BASOPHILS % 0.5 % (0.0-2.0); EOSINOPHILS # 0.3 10^3/ul (0.0-0.5); EOSINOPHILS % 2.6 % (0.0-7.0); HEMATOCRIT 35.8 % (42.0-52.0); HEMOGLOBIN 12.3 g/dl (14.0-18.0); LYMPHOCYTES % 10.6 % (15.0-51.0); MEAN CORPUSCULAR HEMOGLOBIN 32.5 pg (29.0-33.0); MEAN CORPUSCULAR HGB CONC 34.4 g/dl (32.0-37.0); MEAN CORPUSCULAR VOLUME 94.5 fl (82.0-101.0); MONOCYTE # 1.2 10^3/ul (0.3-0.9); MONOCYTES % 12.7 % (0.0-11.0); NEUTROPHILS % 72.5 % (39.0-77.0); PLATELET COUNT 200 10^3/UL (140-415); RED BLOOD COUNT 3.79 10^6/ul (4.70-6.10)
[2019-02-12 08:20] LABS: ALANINE AMINOTRANSFERASE 42 IU/L (13-69); ALBUMIN 3.3 g/dl (3.3-4.9); ALBUMIN/GLOBULIN RATIO 1.13; ALKALINE PHOSPHATASE 77 IU/L (42-121); ANION GAP 15 (5-13); ASPARTATE AMINO TRANSFERASE 55 IU/L (15-46); BILIRUBIN,INDIRECT 1.4 mg/dl (0-1.1); BILIRUBIN,TOTAL 1.4 mg/dl (0.2-1.3); BLOOD UREA NITROGEN 38 mg/dl (7-20); CALCIUM 9.2 mg/dl (8.4-10.2); CARBON DIOXIDE 24 mmol/L (21-31); CHLORIDE 101 mmol/L (97-110); CREATININE 1.17 mg/dl (0.61-1.24); GLUCOSE 129 mg/dl (70-220); POTASSIUM 3.2 mmol/L (3.5-5.1); SODIUM 140 mmol/L (135-144); TOTAL PROTEIN 6.2 g/dl (6.1-8.1)
[2019-02-12] MEDS: ASPIRIN 81 MG TAB PO (08:43)
[2019-02-12] MEDS: AMLODIPINE 2.5 MG TAB PO (08:43)
[2019-02-12] MEDS: POTASSIUM CHLORIDE 40 MEQ, CALCIUM CHLORIDE 10% 1 GM in DEXTROSE 5%-0.225% NACL 1,000 ML IV (14:57)
[2019-02-12] MEDS: FUROSEMIDE 20 MG INJ IV (16:18)
[2019-02-12] MEDS: DONEPEZIL 5 MG TAB PO (21:11)
[2019-02-12] MEDS: ATORVASTATIN 40 MG TAB PO (21:11)
[2019-02-12] MEDS: TAMSULOSIN (SR) 0.4 MG CAP PO (21:11)
[2019-02-12] MEDS: traZODone 50 MG TAB PO (21:12)
[2019-02-13] MEDS: POTASSIUM CHLORIDE (SR) 20 MEQ TAB PO (00:10)
[2019-02-13] MEDS: LEVALBUTEROL (NEB) 0.63 MG/3 ML AMP HHN ×5 (01:22→22:10)
[2019-02-13] MEDS: PANTOPRAZOLE (EC) 40 MG TAB PO (05:53)
[2019-02-13 07:03] LABS: ADD MAN DIFF? NO
[2019-02-13 07:06] LABS: BASOPHIL # 0.1 10^3/ul (0.0-0.1); BASOPHILS % 0.5 % (0.0-2.0); EOSINOPHILS # 0.3 10^3/ul (0.0-0.5); EOSINOPHILS % 2.9 % (0.0-7.0); HEMATOCRIT 34.3 % (42.0-52.0); HEMOGLOBIN 11.7 g/dl (14.0-18.0); LYMPHOCYTES # 1.4 10^3/ul (0.8-2.9); LYMPHOCYTES % 12.4 % (15.0-51.0); MEAN CORPUSCULAR HEMOGLOBIN 31.9 pg (29.0-33.0); MEAN CORPUSCULAR HGB CONC 34.1 g/dl (32.0-37.0); MEAN CORPUSCULAR VOLUME 93.5 fl (82.0-101.0); MEAN PLATELET VOLUME 9.8 fl (7.4-10.4); MONOCYTE # 1.4 10^3/ul (0.3-0.9); MONOCYTES % 12.8 % (0.0-11.0); NEUTROPHIL # 7.8 10^3/ul (1.6-7.5); NEUTROPHILS % 70.1 % (39.0-77.0); PLATELET COUNT 205 10^3/UL (140-415); RED BLOOD COUNT 3.67 10^6/ul (4.70-6.10)
[2019-02-13 07:06] LABS: WHITE BLOOD COUNT 11.1 10^3/ul (4.8-10.8)
[2019-02-13 07:27] LABS: ANION GAP 9 (5-13); BLOOD UREA NITROGEN 44 mg/dl (7-20); CALCIUM 9.3 mg/dl (8.4-10.2); CARBON DIOXIDE 25 mmol/L (21-31); CHLORIDE 105 mmol/L (97-110); CREATININE 1.43 mg/dl (0.61-1.24); GLUCOSE 120 mg/dl (70-220); POTASSIUM 3.5 mmol/L (3.5-5.1); SODIUM 139 mmol/L (135-144)
[2019-02-13] MEDS: AMLODIPINE 2.5 MG TAB PO (09:04)
[2019-02-13] MEDS: ASPIRIN 81 MG TAB PO (09:04)
[2019-02-13] MEDS: POTASSIUM CHLORIDE 40 MEQ, CALCIUM CHLORIDE 10% 1 GM in DEXTROSE 5%-0.225% NACL 1,000 ML IV (09:10)
[2019-02-13] MEDS: PROMETHAZINE/CODEINE 5ML CUP PO (13:55)
[2019-02-13] MEDS: POTASSIUM CHLORIDE 50 ML IVPB ×3 (15:10→17:34)
[2019-02-13] MEDS: ENOXAPARIN 30 MG/0.3 ML SYG SC (17:44)
[2019-02-13] MEDS: DONEPEZIL 5 MG TAB PO (20:08)
[2019-02-13] MEDS: traZODone 50 MG TAB PO (20:08)
[2019-02-13] MEDS: ATORVASTATIN 40 MG TAB PO (20:08)
[2019-02-13] MEDS: TAMSULOSIN (SR) 0.4 MG CAP PO (20:08)
[2019-02-14] MEDS: POTASSIUM CHLORIDE 40 MEQ, CALCIUM CHLORIDE 10% 1 GM in DEXTROSE 5%-0.225% NACL 1,000 ML IV ×2 (01:17→21:38)
[2019-02-14] MEDS: LEVALBUTEROL (NEB) 0.63 MG/3 ML AMP HHN ×4 (02:19→19:29)
[2019-02-14] MEDS: PANTOPRAZOLE (EC) 40 MG TAB PO (06:45)
[2019-02-14] MEDS: AMLODIPINE 2.5 MG TAB PO (08:09)
[2019-02-14] MEDS: ASPIRIN 81 MG TAB PO (08:09)
[2019-02-14] MEDS: ENOXAPARIN 30 MG/0.3 ML SYG SC (08:15)
[2019-02-14 14:34] LABS: ADD UMIC YES; UR ASCORBIC ACID NEGATIVE (NEGATIVE); UR BILIRUBIN (Dip) NEGATIVE (NEGATIVE); UR BLOOD (Dip) 1+ mg/dL (NEGATIVE); UR CLARITY SLIGHTLY CLOUDY (CLEAR); UR COLOR YELLOW (YELLOW); UR GLUCOSE (Dip) NEGATIVE (NEGATIVE); UR KETONES (Dip) NEGATIVE (NEGATIVE); UR LEUKOCYTE ESTERASE (Dip) NEGATIVE Leu/ul (NEGATIVE); UR NITRITE (Dip) NEGATIVE (NEGATIVE); UR RBC 7 /HPF (0-5); UR SPECIFIC GRAVITY (Dip) 1.018 (1.003-1.030); UR TOTAL PROTEIN (Dip) 2+ mg/dl (NEGATIVE); UR UROBILINOGEN (Dip) 1+ mg/dL (NEGATIVE); UR WBC 5 /HPF (0-5)
[2019-02-14 15:33] LABS: AMMONIA 11 umol/l (9-30)
[2019-02-14] MEDS: PROMETHAZINE/CODEINE 5ML CUP PO (15:51)
[2019-02-14] MEDS: ATORVASTATIN 40 MG TAB PO (21:37)
[2019-02-14] MEDS: DONEPEZIL 5 MG TAB PO (21:37)
[2019-02-14] MEDS: traZODone 50 MG TAB PO (21:37)
[2019-02-14] MEDS: TAMSULOSIN (SR) 0.4 MG CAP PO (21:38)
[2019-02-15] MEDS: LEVALBUTEROL (NEB) 0.63 MG/3 ML AMP HHN ×4 (01:04→20:17)
[2019-02-15] MEDS: PANTOPRAZOLE (EC) 40 MG TAB PO (06:01)
[2019-02-15 07:49] LABS: ADD MAN DIFF? NO
[2019-02-15 07:53] LABS: BASOPHIL # 0.1 10^3/ul (0.0-0.1); BASOPHILS % 0.9 % (0.0-2.0); EOSINOPHILS # 0.6 10^3/ul (0.0-0.5); EOSINOPHILS % 5.4 % (0.0-7.0); HEMATOCRIT 36.2 % (42.0-52.0); HEMOGLOBIN 12.1 g/dl (14.0-18.0); LYMPHOCYTES # 1.3 10^3/ul (0.8-2.9); MEAN CORPUSCULAR HEMOGLOBIN 31.8 pg (29.0-33.0); MEAN CORPUSCULAR HGB CONC 33.4 g/dl (32.0-37.0); MEAN PLATELET VOLUME 10.4 fl (7.4-10.4); MONOCYTE # 1.1 10^3/ul (0.3-0.9); MONOCYTES % 10.6 % (0.0-11.0); NEUTROPHILS % 68.5 % (39.0-77.0); PLATELET COUNT 205 10^3/UL (140-415); RED BLOOD COUNT 3.81 10^6/ul (4.70-6.10); RED CELL DISTRIBUTION WIDTH 12.1 % (11.5-14.5)
[2019-02-15 07:53] LABS: WHITE BLOOD COUNT 10.2 10^3/ul (4.8-10.8)
[2019-02-15 08:17] LABS: ANION GAP 12 (5-13); BLOOD UREA NITROGEN 30 mg/dl (7-20); CALCIUM 9.1 mg/dl (8.4-10.2); CARBON DIOXIDE 24 mmol/L (21-31); CHLORIDE 104 mmol/L (97-110); CREATININE 1.21 mg/dl (0.61-1.24); GLUCOSE 112 mg/dl (70-220); MAGNESIUM 1.5 mg/dl (1.7-2.5); POTASSIUM 3.9 mmol/L (3.5-5.1); SODIUM 140 mmol/L (135-144)
[2019-02-15] MEDS: ASPIRIN 81 MG TAB PO (08:50)
[2019-02-15] MEDS: AMLODIPINE 2.5 MG TAB PO (08:50)
[2019-02-15] MEDS: ENOXAPARIN 30 MG/0.3 ML SYG SC (08:57)
[2019-02-15] MEDS: PROMETHAZINE/CODEINE 5ML CUP PO (10:38)
[2019-02-15] MEDS: MAGNESIUM SULFATE 1 GM/D5W 100 ML IVPB ×2 (10:45→15:58)
[2019-02-15] MEDS: MAGNESIUM SULFATE 2 GM/50 ML 50 ML IVPB (14:18)
[2019-02-15 15:16] LABS: T4 (THYROXINE) 7.3 ug/dl (5.5-11.0)
[2019-02-15 15:16] LABS: FREE T3 3.39 pg/ml (2.77-5.27)
[2019-02-15] MEDS: TAMSULOSIN (SR) 0.4 MG CAP PO (20:11)
[2019-02-15] MEDS: traZODone 50 MG TAB PO (20:11)
[2019-02-15] MEDS: DONEPEZIL 5 MG TAB PO (20:11)
[2019-02-15] MEDS: ATORVASTATIN 40 MG TAB PO (20:12)
[2019-02-16] MEDS: LEVALBUTEROL (NEB) 0.63 MG/3 ML AMP HHN ×4 (02:07→20:28)
[2019-02-16] MEDS: PANTOPRAZOLE (EC) 40 MG TAB PO (05:46)
[2019-02-16] MEDS: ASPIRIN 81 MG TAB PO (08:25)
[2019-02-16] MEDS: BENAZEPRIL 5 MG TAB PO (08:26)
[2019-02-16] MEDS: ENOXAPARIN 30 MG/0.3 ML SYG SC (08:29)
[2019-02-16] MEDS: MAGNESIUM SULFATE 2 GM/50 ML 50 ML IVPB (17:18)
[2019-02-16] MEDS: TAMSULOSIN (SR) 0.4 MG CAP PO (20:52)
[2019-02-16] MEDS: DONEPEZIL 5 MG TAB PO (20:53)
[2019-02-16] MEDS: ATORVASTATIN 40 MG TAB PO (20:53)
[2019-02-16] MEDS: traZODone 50 MG TAB PO (20:53)
[2019-02-17] MEDS: LEVALBUTEROL (NEB) 0.63 MG/3 ML AMP HHN ×3 (02:21→15:01)
[2019-02-17] MEDS: PANTOPRAZOLE (EC) 40 MG TAB PO (05:48)
[2019-02-17 06:49] LABS: ADD MAN DIFF? NO
[2019-02-17 06:55] LABS: WHITE BLOOD COUNT 10.5 10^3/ul (4.8-10.8)
[2019-02-17 06:55] LABS: BASOPHIL # 0.1 10^3/ul (0.0-0.1); EOSINOPHILS # 0.4 10^3/ul (0.0-0.5); EOSINOPHILS % 3.5 % (0.0-7.0); HEMATOCRIT 35.2 % (42.0-52.0); HEMOGLOBIN 11.9 g/dl (14.0-18.0); LYMPHOCYTES # 1.3 10^3/ul (0.8-2.9); LYMPHOCYTES % 12.7 % (15.0-51.0); MEAN CORPUSCULAR HEMOGLOBIN 31.8 pg (29.0-33.0); MEAN CORPUSCULAR HGB CONC 33.8 g/dl (32.0-37.0); MEAN CORPUSCULAR VOLUME 94.1 fl (82.0-101.0); MEAN PLATELET VOLUME 10.2 fl (7.4-10.4); MONOCYTE # 1.2 10^3/ul (0.3-0.9); MONOCYTES % 10.9 % (0.0-11.0); NEUTROPHIL # 7.4 10^3/ul (1.6-7.5); NEUTROPHILS % 70.7 % (39.0-77.0); PLATELET COUNT 261 10^3/UL (140-415); RED BLOOD COUNT 3.74 10^6/ul (4.70-6.10); RED CELL DISTRIBUTION WIDTH 12.1 % (11.5-14.5)
[2019-02-17 07:26] LABS: ANION GAP 8 (5-13); BLOOD UREA NITROGEN 36 mg/dl (7-20); CALCIUM 8.7 mg/dl (8.4-10.2); CARBON DIOXIDE 23 mmol/L (21-31); CHLORIDE 108 mmol/L (97-110); CREATININE 1.41 mg/dl (0.61-1.24); GLUCOSE 109 mg/dl (70-220); MAGNESIUM 2.2 mg/dl (1.7-2.5); SODIUM 139 mmol/L (135-144)
[2019-02-17] MEDS: ASPIRIN 81 MG TAB PO (08:36)
[2019-02-17] MEDS: BENAZEPRIL 5 MG TAB PO (08:36)
[2019-02-17] MEDS: ENOXAPARIN 30 MG/0.3 ML SYG SC (08:39)
== END 2019-02-17 17:46 | DRG 233 ==
LOC: SDS 07:08 → TEL 02-11 18:42 → SDS 07:08 → ICU 02-07 10:47 → SDS 10:42 → ICU 11:37 → 6WM 16:56
PROVIDERS: Internal Medicine
PROC: 021009W Bypass Coronary Artery, One Artery from Aorta with Autologous Venous Tissue, Open Approach (ICD-10-PCS; principal; 2019-02-03 09:06)
PROC: 4A023N7 Measurement of Cardiac Sampling and Pressure, Left Heart, Percutaneous Approach (ICD-10-PCS; 2019-02-03 09:06)
PROC: 02100Z9 Bypass Coronary Artery, One Artery from Left Internal Mammary, Open Approach (ICD-10-PCS; 2019-02-03 09:06)
PROC: 05B Upper Veins, Excision (ICD-10-PCS; 2019-02-03 09:06)
PROC: B211YZZ Fluoroscopy of Multiple Coronary Arteries using Other Contrast (ICD-10-PCS; 2019-02-03 09:06)
PROC: B215YZZ Fluoroscopy of Left Heart using Other Contrast (ICD-10-PCS; 2019-02-03 09:06)
PROC: 5A1221Z Performance of Cardiac Output, Continuous (ICD-10-PCS; 2019-02-03 09:06)
PROC: 02HP32Z Insertion of Monitoring Device into Pulmonary Trunk, Percutaneous Approach (ICD-10-PCS; 2019-02-03 09:06)
DX: I25.119 Atherosclerotic heart disease of native coronary artery with unspecified angina pectoris (principal); J96.00 Acute respiratory failure, unspecified whether with hypoxia or hypercapnia; G92 Toxic encephalopathy; N17.9 Acute kidney failure, unspecified; I42.9 Cardiomyopathy, unspecified; E78.5 Hyperlipidemia, unspecified; E11.51 Type 2 diabetes mellitus with diabetic peripheral angiopathy without gangrene; F17.200 Nicotine dependence, unspecified, uncomplicated; G31.84 Mild cognitive impairment of uncertain or unknown etiology; E87.6 Hypokalemia; I11.0 Hypertensive heart disease with heart failure; I50.9 Heart failure, unspecified
CPT/HCPCS: 36430; 36592; 36600; 70450; 70551; 71045; 75630; 80048; 80053; 80061; 81001; 82140; 82607; 82803; 82962; 83036; 83735; 84100; 84436; 84443; 84481; 85025; 85610; 85730; 86644; 86850; 86900; 86901; 86920; 86945; 87081; 93005; 93458; 93880; 93922; 93923; 93970; 94002; 94003; 94640; 94664; 94770; 97116; 97163; 97530

== ENCOUNTER 2019-02-17 17:54 | Inpatient (IN) | payer MEDICARE, OTHER ==
[2019-02-17] MEDS ORDERED: MAGNESIUM HYDROXIDE 30ML CUP PO (18:30)
[2019-02-17] MEDS ORDERED: PENDING SANTYL ORDER FOR WOUND CARE XX (18:30)
[2019-02-17] MEDS ORDERED: LACTULOSE 30ML CUP PO (18:30)
[2019-02-17] MEDS ORDERED: BISACODYL 10 MG SUPP PR (18:30)
[2019-02-17] MEDS ORDERED: LEVALBUTEROL (NEB) 0.63 MG/3 ML AMP HHN (19:30)
[2019-02-17] MEDS ORDERED: ONDANSETRON 4 MG INJ IV (19:30)
[2019-02-17] MEDS ORDERED: ACETAMINOPHEN 325 MG TAB PO (19:30)
[2019-02-17] MEDS: LEVALBUTEROL (NEB) 0.63 MG/3 ML AMP HHN (20:07)
[2019-02-17] MEDS: ATORVASTATIN 40 MG TAB PO (20:47)
[2019-02-17] MEDS: traZODone 50 MG TAB PO (20:47)
[2019-02-17] MEDS: DONEPEZIL 5 MG TAB PO (20:47)
[2019-02-17] MEDS: TAMSULOSIN (SR) 0.4 MG CAP PO (20:47)
[2019-02-17] MEDS: SENNA TAB PO (20:47)
[2019-02-17] MEDS: DOCUSATE SODIUM 100 MG CAP PO (20:47)
[2019-02-18 04:33] LABS: ADD UMIC YES; UR ASCORBIC ACID NEGATIVE (NEGATIVE); UR BACTERIA FEW /HPF (NONE SEEN); UR BILIRUBIN (Dip) NEGATIVE (NEGATIVE); UR BLOOD (Dip) NEGATIVE (NEGATIVE); UR CLARITY SLIGHTLY CLOUDY (CLEAR); UR COLOR YELLOW (YELLOW); UR GLUCOSE (Dip) NEGATIVE (NEGATIVE); UR KETONES (Dip) NEGATIVE (NEGATIVE); UR LEUKOCYTE ESTERASE (Dip) NEGATIVE Leu/ul (NEGATIVE); UR MUCUS FEW /HPF (NONE SEEN); UR NITRITE (Dip) NEGATIVE (NEGATIVE); UR RBC 4 /HPF (0-5); UR TOTAL PROTEIN (Dip) 2+ mg/dl (NEGATIVE); UR UROBILINOGEN (Dip) NEGATIVE (NEGATIVE); UR WBC 2 /HPF (0-5)
[2019-02-18 07:08] LABS: ADD MAN DIFF? NO
[2019-02-18 07:16] LABS: BASOPHIL # 0.1 10^3/ul (0.0-0.1); EOSINOPHILS # 0.4 10^3/ul (0.0-0.5); EOSINOPHILS % 3.3 % (0.0-7.0); HEMATOCRIT 33.8 % (42.0-52.0); HEMOGLOBIN 11.3 g/dl (14.0-18.0); LYMPHOCYTES # 1.4 10^3/ul (0.8-2.9); LYMPHOCYTES % 13.3 % (15.0-51.0); MEAN CORPUSCULAR HEMOGLOBIN 31.8 pg (29.0-33.0); MEAN CORPUSCULAR HGB CONC 33.4 g/dl (32.0-37.0); MEAN CORPUSCULAR VOLUME 95.2 fl (82.0-101.0); MEAN PLATELET VOLUME 11.4 fl (7.4-10.4); MONOCYTE # 1.1 10^3/ul (0.3-0.9); MONOCYTES % 10.6 % (0.0-11.0); NEUTROPHIL # 7.4 10^3/ul (1.6-7.5); NEUTROPHILS % 70.6 % (39.0-77.0); PLATELET COUNT 112 10^3/UL (140-415); RED BLOOD COUNT 3.55 10^6/ul (4.70-6.10); RED CELL DISTRIBUTION WIDTH 11.9 % (11.5-14.5)
[2019-02-18 07:16] LABS: WHITE BLOOD COUNT 10.5 10^3/ul (4.8-10.8)
[2019-02-18] MEDS: PANTOPRAZOLE (EC) 40 MG TAB PO (07:26)
[2019-02-18 07:35] LABS: ALANINE AMINOTRANSFERASE 49 IU/L (13-69); ALBUMIN 3.1 g/dl (3.3-4.9); ALBUMIN/GLOBULIN RATIO 1.03; ALKALINE PHOSPHATASE 76 IU/L (42-121); ANION GAP 8 (5-13); ASPARTATE AMINO TRANSFERASE 31 IU/L (15-46); BILIRUBIN,INDIRECT 0.9 mg/dl (0-1.1); BILIRUBIN,TOTAL 0.9 mg/dl (0.2-1.3); BLOOD UREA NITROGEN 36 mg/dl (7-20); CALCIUM 8.6 mg/dl (8.4-10.2); CARBON DIOXIDE 23 mmol/L (21-31); CHLORIDE 109 mmol/L (97-110); CREATININE 1.42 mg/dl (0.61-1.24); GLUCOSE 103 mg/dl (70-220); POTASSIUM 3.8 mmol/L (3.5-5.1); SODIUM 140 mmol/L (135-144); TOTAL PROTEIN 6.1 g/dl (6.1-8.1)
[2019-02-18] MEDS: LEVALBUTEROL (NEB) 0.63 MG/3 ML AMP HHN ×2 (08:03→19:36)
[2019-02-18] MEDS: ASPIRIN 81 MG TAB PO (09:19)
[2019-02-18] MEDS: DOCUSATE SODIUM 100 MG CAP PO ×2 (09:19→21:15)
[2019-02-18] MEDS: BENAZEPRIL 5 MG TAB PO (09:20)
[2019-02-18] MEDS: ENOXAPARIN 30 MG/0.3 ML SYG SC (09:21)
[2019-02-18] MEDS: TAMSULOSIN (SR) 0.4 MG CAP PO (21:15)
[2019-02-18] MEDS: DONEPEZIL 5 MG TAB PO (21:15)
[2019-02-18] MEDS: SENNA TAB PO (21:16)
[2019-02-18] MEDS: traZODone 50 MG TAB PO (21:16)
[2019-02-18] MEDS: ATORVASTATIN 40 MG TAB PO (21:16)
[2019-02-19] MEDS: HYDROCODONE/APAP (5/325) TAB PO (03:02)
[2019-02-19] MEDS: PANTOPRAZOLE (EC) 40 MG TAB PO (06:09)
[2019-02-19] MEDS: LEVALBUTEROL (NEB) 0.63 MG/3 ML AMP HHN ×2 (07:42→19:55)
[2019-02-19] MEDS: DOCUSATE SODIUM 100 MG CAP PO ×2 (08:53→21:00)
[2019-02-19] MEDS: ASPIRIN 81 MG TAB PO (08:53)
[2019-02-19] MEDS: BENAZEPRIL 5 MG TAB PO (08:54)
[2019-02-19] MEDS: SENNA TAB PO (21:00)
[2019-02-19] MEDS: traZODone 50 MG TAB PO (21:02)
[2019-02-19] MEDS: TAMSULOSIN (SR) 0.4 MG CAP PO (21:02)
[2019-02-19] MEDS: ATORVASTATIN 40 MG TAB PO (21:02)
[2019-02-19] MEDS: DONEPEZIL 5 MG TAB PO (21:05)
[2019-02-20] MEDS: PANTOPRAZOLE (EC) 40 MG TAB PO (06:33)
[2019-02-20] MEDS: LEVALBUTEROL (NEB) 0.63 MG/3 ML AMP HHN ×2 (09:00→19:50)
[2019-02-20] MEDS: ASPIRIN 81 MG TAB PO (09:14)
[2019-02-20] MEDS: BENAZEPRIL 5 MG TAB PO (09:15)
[2019-02-20] MEDS: DOCUSATE SODIUM 100 MG CAP PO ×2 (09:15→21:00)
[2019-02-20] MEDS: SENNA TAB PO (21:00)
[2019-02-20] MEDS: traZODone 50 MG TAB PO (21:16)
[2019-02-20] MEDS: TAMSULOSIN (SR) 0.4 MG CAP PO (21:16)
[2019-02-20] MEDS: ATORVASTATIN 40 MG TAB PO (21:17)
[2019-02-20] MEDS: ACETAMINOPHEN 325 MG TAB PO (21:18)
[2019-02-20] MEDS: DONEPEZIL 5 MG TAB PO (21:22)
[2019-02-21] MEDS: PANTOPRAZOLE (EC) 40 MG TAB PO (06:11)
[2019-02-21] MEDS: LEVALBUTEROL (NEB) 0.63 MG/3 ML AMP HHN ×2 (07:43→20:03)
[2019-02-21] MEDS: ASPIRIN 81 MG TAB PO (08:59)
[2019-02-21] MEDS: DOCUSATE SODIUM 100 MG CAP PO ×2 (08:59→21:59)
[2019-02-21] MEDS: BENAZEPRIL 5 MG TAB PO (09:00)
[2019-02-21] MEDS: PROMETHAZINE/CODEINE 5ML CUP PO ×2 (09:39→22:08)
[2019-02-21] MEDS: SENNA TAB PO (21:59)
[2019-02-21] MEDS: ATORVASTATIN 40 MG TAB PO (21:59)
[2019-02-21] MEDS: TAMSULOSIN (SR) 0.4 MG CAP PO (21:59)
[2019-02-21] MEDS: HYDROCODONE/APAP (5/325) TAB PO (21:59)
[2019-02-21] MEDS: traZODone 50 MG TAB PO (21:59)
[2019-02-21] MEDS: DONEPEZIL 5 MG TAB PO (21:59)
[2019-02-22] MEDS: PANTOPRAZOLE (EC) 40 MG TAB PO (06:45)
[2019-02-22] MEDS: LEVALBUTEROL (NEB) 0.63 MG/3 ML AMP HHN ×2 (08:04→20:45)
[2019-02-22] MEDS: ASPIRIN 81 MG TAB PO (10:16)
[2019-02-22] MEDS: DOCUSATE SODIUM 100 MG CAP PO ×2 (10:16→20:36)
[2019-02-22] MEDS: BENAZEPRIL 5 MG TAB PO (10:17)
[2019-02-22] MEDS: PROMETHAZINE/CODEINE 5ML CUP PO (10:22)
[2019-02-22] MEDS: ACETAMINOPHEN 325 MG TAB PO (19:08)
[2019-02-22] MEDS: DONEPEZIL 5 MG TAB PO (20:36)
[2019-02-22] MEDS: SENNA TAB PO (20:36)
[2019-02-22] MEDS: ATORVASTATIN 40 MG TAB PO (20:37)
[2019-02-22] MEDS: traZODone 50 MG TAB PO (20:37)
[2019-02-22] MEDS: TAMSULOSIN (SR) 0.4 MG CAP PO (20:37)
[2019-02-23] MEDS: PANTOPRAZOLE (EC) 40 MG TAB PO (06:57)
[2019-02-23] MEDS: DOCUSATE SODIUM 100 MG CAP PO ×2 (09:24→20:51)
[2019-02-23] MEDS: ASPIRIN 81 MG TAB PO (09:24)
[2019-02-23] MEDS: BENAZEPRIL 5 MG TAB PO (09:25)
[2019-02-23] MEDS: LEVALBUTEROL (NEB) 0.63 MG/3 ML AMP HHN ×2 (09:37→21:46)
[2019-02-23] MEDS: PROMETHAZINE/CODEINE 5ML CUP PO ×2 (14:51→20:56)
[2019-02-23] MEDS: ALBUTEROL/IPRATROPIUM (NEB) 3 ML AMP HHN (20:00)
[2019-02-23] MEDS ORDERED: ALBUTEROL/IPRATROPIUM (NEB) 3 ML AMP HHN (20:00)
[2019-02-23] MEDS: TAMSULOSIN (SR) 0.4 MG CAP PO (20:51)
[2019-02-23] MEDS: SENNA TAB PO (20:51)
[2019-02-23] MEDS: ATORVASTATIN 40 MG TAB PO (20:51)
[2019-02-23] MEDS: DONEPEZIL 5 MG TAB PO (20:52)
[2019-02-23] MEDS: CLOTRIMAZOLE 1% 30 GM CR TOP (20:56)
[2019-02-23] MEDS: traZODone 50 MG TAB PO (20:56)
[2019-02-24] MEDS: ALBUTEROL/IPRATROPIUM (NEB) 3 ML AMP HHN ×4 (02:41→20:22)
[2019-02-24] MEDS: PANTOPRAZOLE (EC) 40 MG TAB PO (06:14)
[2019-02-24] MEDS: AMMONIUM LACTATE 12% 225 GM LOT TOP (08:51)
[2019-02-24] MEDS: CLOTRIMAZOLE 1% 30 GM CR TOP ×2 (08:51→20:26)
[2019-02-24] MEDS: ASPIRIN 81 MG TAB PO (08:52)
[2019-02-24] MEDS: BENAZEPRIL 5 MG TAB PO (08:52)
[2019-02-24] MEDS: DOCUSATE SODIUM 100 MG CAP PO ×2 (08:52→20:24)
[2019-02-24] MEDS: TAMSULOSIN (SR) 0.4 MG CAP PO (20:23)
[2019-02-24] MEDS: traZODone 50 MG TAB PO (20:23)
[2019-02-24] MEDS: ATORVASTATIN 40 MG TAB PO (20:23)
[2019-02-24] MEDS: GUAIFENESIN LA 600 MG TABSR PO (20:24)
[2019-02-24] MEDS: DONEPEZIL 5 MG TAB PO (20:24)
[2019-02-24] MEDS: SENNA TAB PO (20:24)
[2019-02-25] MEDS: ALBUTEROL/IPRATROPIUM (NEB) 3 ML AMP HHN ×4 (02:35→19:34)
[2019-02-25] MEDS: PANTOPRAZOLE (EC) 40 MG TAB PO (06:34)
[2019-02-25] MEDS: ASPIRIN 81 MG TAB PO (09:45)
[2019-02-25] MEDS: HYDROCODONE/APAP (5/325) TAB PO ×2 (09:45→20:37)
[2019-02-25] MEDS: GUAIFENESIN LA 600 MG TABSR PO ×2 (09:45→20:27)
[2019-02-25] MEDS: DOCUSATE SODIUM 100 MG CAP PO ×2 (09:45→20:27)
[2019-02-25] MEDS: AMMONIUM LACTATE 12% 225 GM LOT TOP (09:48)
[2019-02-25] MEDS: BENAZEPRIL 5 MG TAB PO (09:48)
[2019-02-25] MEDS: CLOTRIMAZOLE 1% 30 GM CR TOP ×2 (09:49→20:31)
[2019-02-25] MEDS ORDERED: ONDANSETRON 4 MG TAB PO (12:00)
[2019-02-25] MEDS: NEOMYC/POLYMYX/BACIT 30 GM OINT TOP ×2 (14:37→20:31)
[2019-02-25] MEDS: DONEPEZIL 5 MG TAB PO (20:27)
[2019-02-25] MEDS: ATORVASTATIN 40 MG TAB PO (20:27)
[2019-02-25] MEDS: SENNA TAB PO (20:27)
[2019-02-25] MEDS: traZODone 50 MG TAB PO (20:27)
[2019-02-25] MEDS: TAMSULOSIN (SR) 0.4 MG CAP PO (20:27)
[2019-02-26] MEDS: ALBUTEROL/IPRATROPIUM (NEB) 3 ML AMP HHN ×4 (01:23→19:24)
[2019-02-26] MEDS: PANTOPRAZOLE (EC) 40 MG TAB PO (06:48)
[2019-02-26] MEDS: ASPIRIN 81 MG TAB PO (08:35)
[2019-02-26] MEDS: DOCUSATE SODIUM 100 MG CAP PO ×2 (08:35→21:15)
[2019-02-26] MEDS: AMMONIUM LACTATE 12% 225 GM LOT TOP (08:36)
[2019-02-26] MEDS: GUAIFENESIN LA 600 MG TABSR PO ×2 (08:36→21:15)
[2019-02-26] MEDS: BENAZEPRIL 5 MG TAB PO (08:36)
[2019-02-26] MEDS: CLOTRIMAZOLE 1% 30 GM CR TOP ×2 (08:36→21:16)
[2019-02-26] MEDS: NEOMYC/POLYMYX/BACIT 30 GM OINT TOP ×2 (08:36→21:16)
[2019-02-26] MEDS: traZODone 50 MG TAB PO (21:15)
[2019-02-26] MEDS: TAMSULOSIN (SR) 0.4 MG CAP PO (21:15)
[2019-02-26] MEDS: DONEPEZIL 5 MG TAB PO (21:15)
[2019-02-26] MEDS: SENNA TAB PO (21:15)
[2019-02-26] MEDS: ATORVASTATIN 40 MG TAB PO (21:15)
[2019-02-26] MEDS: ACETAMINOPHEN 325 MG TAB PO (21:19)
[2019-02-27] MEDS: ALBUTEROL/IPRATROPIUM (NEB) 3 ML AMP HHN ×4 (01:57→19:59)
[2019-02-27] MEDS: PANTOPRAZOLE (EC) 40 MG TAB PO (06:52)
[2019-02-27] MEDS: DOCUSATE SODIUM 100 MG CAP PO ×3 (09:00→21:00)
[2019-02-27] MEDS: ASPIRIN 81 MG TAB PO (09:29)
[2019-02-27] MEDS: GUAIFENESIN LA 600 MG TABSR PO ×2 (09:29→21:10)
[2019-02-27] MEDS: BENAZEPRIL 5 MG TAB PO (09:30)
[2019-02-27] MEDS: AMMONIUM LACTATE 12% 225 GM LOT TOP (09:31)
[2019-02-27] MEDS: NEOMYC/POLYMYX/BACIT 30 GM OINT TOP ×2 (09:32→21:16)
[2019-02-27] MEDS: CLOTRIMAZOLE 1% 30 GM CR TOP ×2 (09:32→21:19)
[2019-02-27] MEDS: SENNA TAB PO (21:00)
[2019-02-27] MEDS: TAMSULOSIN (SR) 0.4 MG CAP PO (21:10)
[2019-02-27] MEDS: ATORVASTATIN 40 MG TAB PO (21:10)
[2019-02-27] MEDS: DONEPEZIL 5 MG TAB PO (21:10)
[2019-02-27] MEDS: traZODone 50 MG TAB PO (21:10)
[2019-02-27] MEDS: HYDROCODONE/APAP (5/325) TAB PO (21:12)
[2019-02-28] MEDS: ALBUTEROL/IPRATROPIUM (NEB) 3 ML AMP HHN ×4 (02:26→20:45)
[2019-02-28] MEDS: PANTOPRAZOLE (EC) 40 MG TAB PO (06:12)
[2019-02-28] MEDS: ASPIRIN 81 MG TAB PO (08:08)
[2019-02-28] MEDS: BENAZEPRIL 10 MG TAB PO (08:09)
[2019-02-28] MEDS: GUAIFENESIN LA 600 MG TABSR PO ×2 (08:09→20:22)
[2019-02-28] MEDS: CLOTRIMAZOLE 1% 30 GM CR TOP ×2 (08:09→20:28)
[2019-02-28] MEDS: AMMONIUM LACTATE 12% 225 GM LOT TOP (08:09)
[2019-02-28] MEDS: NEOMYC/POLYMYX/BACIT 30 GM OINT TOP ×2 (08:10→20:28)
[2019-02-28] MEDS: DOCUSATE SODIUM 100 MG CAP PO ×2 (08:15→20:28)
[2019-02-28] MEDS: traZODone 50 MG TAB PO (20:22)
[2019-02-28] MEDS: DONEPEZIL 5 MG TAB PO (20:22)
[2019-02-28] MEDS: ATORVASTATIN 40 MG TAB PO (20:22)
[2019-02-28] MEDS: TAMSULOSIN (SR) 0.4 MG CAP PO (20:22)
[2019-02-28] MEDS: HYDROCODONE/APAP (5/325) TAB PO (20:23)
[2019-02-28] MEDS: SENNA TAB PO (20:29)
[2019-03-01] MEDS: ALBUTEROL/IPRATROPIUM (NEB) 3 ML AMP HHN ×2 (01:21→08:18)
[2019-03-01] MEDS: PANTOPRAZOLE (EC) 40 MG TAB PO (06:33)
[2019-03-01] MEDS: BENAZEPRIL 10 MG TAB PO (08:45)
[2019-03-01] MEDS: DOCUSATE SODIUM 100 MG CAP PO (08:45)
[2019-03-01] MEDS: ASPIRIN 81 MG TAB PO (08:45)
[2019-03-01] MEDS: GUAIFENESIN LA 600 MG TABSR PO (08:45)
[2019-03-01] MEDS: CLOTRIMAZOLE 1% 30 GM CR TOP (08:46)
[2019-03-01] MEDS: NEOMYC/POLYMYX/BACIT 30 GM OINT TOP (08:46)
[2019-03-01] MEDS: AMMONIUM LACTATE 12% 225 GM LOT TOP (08:46)
== END 2019-03-01 13:30 | DRG 92 ==
LOC: VRC 17:54
DX: G92 Toxic encephalopathy (principal); N17.9 Acute kidney failure, unspecified; I42.9 Cardiomyopathy, unspecified; I25.10 Atherosclerotic heart disease of native coronary artery without angina pectoris; E11.51 Type 2 diabetes mellitus with diabetic peripheral angiopathy without gangrene; E78.5 Hyperlipidemia, unspecified; R13.10 Dysphagia, unspecified; F17.200 Nicotine dependence, unspecified, uncomplicated; J33.9 Nasal polyp, unspecified; Z95.1 Presence of aortocoronary bypass graft; Z89.421 Acquired absence of other right toe(s); B35.1 Tinea unguium; B35.3 Tinea pedis
CPT/HCPCS: 71045; 80053; 81001; 85025; 87081; 87086; 92507; 92526; 92610; 94640; 97110; 97112; 97116; 97163; 97166; 97530; 97535